=== PATIENT | male | born 1980 | race Caucasian/White ===

== ENCOUNTER 2024-05-02 13:53 | Outpatient (CLI) | payer BC ==
[2024-05-02 15:18] LABS: #Basophils 0.04 10x3/uL (0.0-0.2); %Basophils 0.4 % (0.0-1.0); %Eosinophils 2.3 % (0.0-10.0); %Lymphocytes 21.5 % (21.0-51.0); %Monocytes 5.8 % (0.0-10.0); %Neutrophils 69.8 % (42.0-75.0); Hematocrit 42.5 % (42.0-52.0); Hemoglobin 15.2 g/dL (14.0-18.0); Mean Corpuscular HGB CONC 35.8 g/dL (32.0-36.0); Mean Corpuscular Hemoglobin 30.4 pg (27.0-31.0); Mean Platelet Volume 9.9 fL (7.4-10.4); Platelet Count 290 10x3/uL (130-400); RBC Distribution Width 12.8 % (11.5-14.5)
[2024-05-02 15:34] LABS: PTT 29.7 sec (22.9-36.1); Prothrombin Time 13.1 sec (12.0-14.7)
[2024-05-02 15:40] LABS: Anion Gap 12 mmol/L (10-20); BUN (Urea Nitrogen) 13 mg/dL (8.9-20.6); Calc. Creatinine Clearance 0 mL/min (70-130); Calcium 9.7 mg/dL (7.8-10.44); Carbon Dioxide 29 mmol/L (22-29); Chloride 104 mmol/L (98-107); Estimated GFR 110; Glucose 104 mg/dL (70-105); Potassium 3.8 mmol/L (3.5-5.1); Sodium 141 mmol/L (136-145)
[2024-05-02 15:47] LABS: Bacteria/HPF None Seen HPF (None Seen); Bilirubin Negative (Negative); Blood, Urine Negative (Negative); Clarity Clear (Clear); Glucose, Urine (Dipstick) Normal (Negative); Ketone, Urine Negative (Negative); Leukocyte Negative Leu/uL (Negative); Nitrite Negative (Negative); Protein, Urine (Dipstick) Negative (Neg-Trace); RBC/HPF 0-3 HPF (0-3); Specific Gravity, Urine 1.004 (1.002-1.036); Squamous Epithelial None Seen HPF (0-3); Urobilinogen Normal mg/dL (Less than 2); WBC/HPF None Seen HPF (0-3)
== END 2024-05-02 13:54 | disposition home or self-care (01) ==
LOC: LABBT 13:53
PROVIDERS: ATTEND Urology
DX: Z01.818 Encounter for other preprocedural examination (principal); Z12.5 Encounter for screening for malignant neoplasm of prostate; N43.3 Hydrocele, unspecified; E29.1 Testicular hypofunction; R35.0 Frequency of micturition
CPT/HCPCS: 80048; 81001; 85025; 85610; 85730; 87086; 93005; 93010

== ENCOUNTER 2024-05-09 07:55 | Day surgery (SDC) | payer BC ==
[2024-05-02 14:14] VITALS: BMI 28.6
[2024-05-09] MEDS ORDERED: Gentamicin 80 MG/2 ML VIAL ONE (11:19)
[2024-05-09] MEDS ORDERED: fentaNYL PF 100 MCG/2 ML SYRINGE ONE ×2 (11:19→13:14)
[2024-05-09] MEDS ORDERED: PROPOFOL 20 ML ONE (11:20)
[2024-05-09] MEDS ORDERED: Vancomycin 1 GM VIAL ONE (11:20)
[2024-05-09] MEDS ORDERED: Bacitracin Zinc Ointment 30 gm TUBE ONE ×2 (11:20)
[2024-05-09] MEDS ORDERED: Lidocaine 2% PF 5 ML VIAL ONE (11:20)
[2024-05-09] MEDS ORDERED: CEFAZOLIN 2 GM VIAL ONE (11:30)
[2024-05-09] MEDS ORDERED: Ciprofloxacin Lactate D5W 400 mg (200 mL) BAG ONE (11:30)
[2024-05-09] MEDS ORDERED: Ondansetron PF 4 MG/2 ML Vial ONE (11:48)
[2024-05-09] MEDS ORDERED: Dexamethasone 20 MG/5 ML VIAL ONE (11:48)
[2024-05-09] MEDS ORDERED: Bupivacaine 0.25% HCL 30 ML VIAL ONE (12:35)
[2024-05-09] MEDS ORDERED: Phenazopyridine HCl 100 MG TAB ONE (13:38)
[2024-05-09] MEDS ORDERED: HYDROmorphone 0.5 MG/0.5 ML SYRINGE ONE (13:45)
[2024-05-09] MEDS ORDERED: HYDROcodone/Acetaminophen 5/325 mg Tablet ONE (13:56)
== END 2024-05-09 17:54 | disposition home or self-care (01) ==
LOC: SDC 07:55
PROVIDERS: ATTEND Urology
PROC: 0VB Male Reproductive System, Excision (ICD-10-PCS; principal; 2024-05-09)
DX: N43.3 Hydrocele, unspecified (principal); E29.1 Testicular hypofunction; R35.0 Frequency of micturition; I10 Essential (primary) hypertension; F41.9 Anxiety disorder, unspecified; E55.9 Vitamin D deficiency, unspecified; G47.00 Insomnia, unspecified
CPT/HCPCS: 88302; J0665; J0744; J1100; J1171; J1580; J2405; J2704; J3370